=== PATIENT | male | born 1985 | race Caucasian/White ===

== ENCOUNTER 2017-07-23 09:14 | Emergency (ER) | payer BC ==
[~2017-07-23] VITALS: Ht 175.3 cm; Wt 81.6 kg
[2017-07-23 09:15] VITALS: BP 132/90
[2017-07-23] MEDS ORDERED: SILVER SULF. CRM 1% , 25GM TP ONE (09:30)
[2017-07-23] MEDS ORDERED: SILVER SULF. CRM 1% , 25GM ONE (09:41)
== END 2017-07-23 10:25 | disposition home or self-care (01) ==
LOC: ED 10:00
DX: L55.1 Sunburn of second degree (principal)
CPT/HCPCS: 99283